=== PATIENT | male | born 1980 | race Caucasian/White ===

== ENCOUNTER → 2017-07-27 | Outpatient (CLI) | payer OTHER ==
[~2017-07-27] MED LIST: AMPH10TA2 PO; DRYSOLDAB TOP; LACT3000 PO
[2017-07-27 10:07] LABS: CHOLESTEROL/HDL RATIO 5.4
== END | disposition home or self-care (01) ==
LOC: C.LAB1850 08:50
PROVIDERS: ATTEND Internal Medicine
DX: Z13.220 Encounter for screening for lipoid disorders (principal); Z13.1 Encounter for screening for diabetes mellitus